=== PATIENT | female | born 2000 | race Caucasian/White ===

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

== ENCOUNTER 2023-03-10 10:32 | Emergency (ER) | payer OTHER, SELFPAY ==
[2023-03-10 10:33] VITALS: BP 120/72; PULSE 76; RESP 16; TEMP 36.8; O2SAT 100
--- NOTE | 2023-03-10 10:47 | ED.VIS.FEGU ---
HPI HPI - Female History of Present Illness Chief Complaint: Vag Bleeding Detail of Chief Complaint: Vaginal bleeding Informant: patient Narrative Narrative: Patient presents with vaginal bleeding that started 8 days ago. Patient thought she was having a normal period but started having more heavy bleeding since yesterday and passing clots. Patient states that she is changing a super tampon every 45 minutes. This morning she woke up her mom around 4 AM and she seemed pale. She denies any abdominal pain. Patient normally has relatively regular periods that can last over a week. She does not think she is . Patient denies abdominal pain or feeling lightheaded or dizzy. PFSH PFSH Medical History no medical history Home Medications albuterol sulfate 90 mcg/actuation aerosol inhaler (Ventolin HFA) 2 puff inhalation Q6H PRN PRN Sob &/Or Wheezing 11/25/14 [History Last Taken Unknown] loratadine 10 mg tablet (Allergy Relief (loratadine)) 10 mg PO DAILY 11/25/14 [History Last Taken Unknown] pediatric multivitamin no.17 (Animal Shapes chewable tablet) 1 ea PO DAILY 11/25/14 [History Last Taken Unknown] norethindrone acetate 5 mg tablet 5 mg PO .qid 7 days #20 tabs 03/10/23 [Rx Last Taken Unknown] Allergy/AdvReac Type Severity Reaction Status Date / Time Penicillins Allergy Swelling Verified 03/10/23 10:35 nut - unspecified [nuts] AdvReac Vomiting Verified 03/10/23 10:35 Family History no significant family his Surgical History no surgical history Social History Smoking Status: Never smoker ROS ROS ED Review of Systems ROS Unobtainable: other Constitutional Constitutional ED: Reports lethargy; Denies chills, fever(s), sweats or weight loss Eyes Eyes: Denies blurry vision, change in vision or diplopia ENT ENT ED: Denies rhinorrhea or sore throat Cardiovascular Cardiovascular: Denies chest pain, orthopnea or racing heartbeat Respiratory/Chest Respiratory/Chest: Denies cough, dyspnea, dyspnea on exertion, orthopnea or sputum Gastrointestinal Gastrointestinal: Denies abdominal pain, diarrhea, nausea or vomiting Genitourinary Genitourinary ED: Reports other Details: Vaginal bleeding ; Denies dysuria, hematuria or urinary frequency Musculoskeletal Musculoskeletal: Denies arthralgias, back pain, myalgias or neck pain Integumentary Denies abscess, Abrasions or rash Neurologic Neurologic: Denies headache(s) or weakness Psychiatric Psychiatric: Denies anxiety, depression or suicidal thoughts Endocrine Endocrinology: Denies polydipsia, polyphagia or polyuria Hematologic/Lymphatic Hematologic/Lymphatic: Denies easy bleeding, easy bruising or lymphadenopathy Allergic/Immunologic Allergic/Immunologic ED: Denies mouth swelling, tongue swelling or urticaria EXAM Physical Exam Const Vital Signs: 03/10/23 10:33 03/10/23 11:36 03/10/23 12:00 Temperature 98.2 F Temperature Source Temporal Pulse Rate 76 87 Pulse Rate [Lying] 60 Pulse Rate [Sitting (for 1 minute prior to obtaining)] 73 Pulse Rate [Standing (for 1 minute prior to obtaining)] 95 Respiratory Rate 16 16 Blood Pressure 120/72 100/65 Blood Pressure [Lying] 96/63 Blood Pressure [Sitting (for 1 minute prior to obtaining)] 107/77 Blood Pressure [Standing (for 1 minute prior to obtaining)] 100/71 Blood Pressure Mean 88 76 Blood Pressure Mean [Lying] 74 Blood Pressure Mean [Sitting (for 1 minute prior to obtaining)] 87 Blood Pressure Mean [Standing (for 1 minute prior to obtaining)] 80 Pulse Ox 100 97 Oxygen Delivery Method Room Air Positive well nourished and well developed General Appearance ED: well developed and NAD HEENT Reports TM's clear and moist mucous membranes normocephalic and atraumatic; Negative for trauma or tenderness Tympanic Membrane ED: Yes TM's clear Eyes PERRL and EOMs intact bilaterally General Eye ED: Negative for pale conjunctiva or scleral icterus Neck no lymphadenopathy, supple and no JVD General: Negative for tenderness Chest Wall inspection of chest normal and palpation of chest normal Chest: Negative for tenderness Resp normal respiratory effort and clear to auscultation bilaterally Effort and Inspection: Negative for respiratory distress or pain with movement Auscultation: Negative for rhonchi, wheezes or diminished lung sounds Cardio regular rate, regular rhythm, S1 normal heart sound, S2 normal heart sound and no murmurs Peripheral Pulses: pulses 2+ throughout GI normal to inspection, nondistended, normoactive bowel sounds, soft to palpation, non-tender, non-distended and no masses Back/Spine no CVA tenderness and no thoracic nor lumbar tenderness Extremity normal to inspection General Extremety ED: Negative for edema General Extremity: Negative for edema Neuro oriented x3, CN's II-XII intact bilaterally, no sensory deficits noted and gait normal Sensorium / Orientation: awake, alert, oriented to person, oriented to place and oriented to time Motor Exam: strength 5/5 throughout and strength abnormal Psych mental status grossly normal Skin no rashes or lesions noted and no wounds MDM MDM MDM Narrative Medical decision making narrative: Patient presents with heavy period lasting more than 8 days and now going through a tampon every 45 minutes. IV line established. CBC with differential obtained showed a white count of 4.8 with hemoglobin 11.1 and platelet count 236. hCG was negative. Orthostatic vital signs were negative. Discussed case with NEEDLE SETTER on-call who recommended Aygestin and follow-up with Dr. Adrian Cole's office. Patient advised to return to persistent heavy bleeding, lightheadedness, or condition should worsen anyway. Lab Data Attestation: I reviewed the patient's lab results. Labs: Laboratory Results - last 24 hr 03/10/23 10:55 WBC 4.8 RBC 3.87 L Hgb 11.1 L Hct 33.4 L MCV 86.3 MCH 28.7 MCHC 33.2 RDW Std Deviation 43.8 RDW Coeff of Kelin 14.0 Plt Count 236 MPV 8.7 Immature Gran % (Auto) 0.200 Neut % (Auto) 43.8 L Lymph % (Auto) 39.1 [place] % (Auto) 7.3 Eos % (Auto) 9.0 H Baso % (Auto) 0.6 Absolute Neuts (auto) 2.1 Absolute Lymphs (auto) 1.87 Nucleated RBC % 0 Serum , Qual NEGATIVE Blood Type O POSITIVE Antibody Screen NEGATIVE Discharge Plan Triage Chief Complaint: Vag Bleeding ED Provider: Jessy Pablo Dx/Rx/DC Orders Clinical Impression: DUB (dysfunctional uterine bleeding) Instructions: ED Dysfunctional Uterine Bleeding Prescriptions: New norethindrone acetate 5 mg tablet 5 mg PO .qid 7 Days Qty: 20 0RF Rx Instructions: Take 4 tablets today and tomorrow. 3 tablets for 2 days after. 2 tablets for 2 days after and 1 tablet for 2 days after No Action albuterol sulfate [Ventolin HFA] 1 INHALER inhaler 2 puff inhalation Q6H PRN PRN (Reason: Sob &/Or Wheezing) loratadine [Allergy Relief (loratadine)] 10 MG tablet 10 mg PO DAILY pediatric multivitamin no.17 [Animal Shapes] 1 EACH tablet,chewable 1 ea PO DAILY Primary Care Provider: Care Physician,No Primary Referrals: Berenice Watts MD [Non-Staff] - Anabell Terry MD [Med Staff - Active Staff] - 3-5 Days Disposition Disposition: Home, Self Care Discharge Date/Time: 03/10/23 12:11
[2023-03-10] MEDS: 0.9% Normal Saline (1000mL) 1,000 ML 150 ML IV (11:11)
[2023-03-10 11:12] VITALS: BMI 21.3
[2023-03-10 11:14] LABS: Absolute Lymphocyte Count 1.87 X10^3/uL (0.83-4.51); Absolute Neutrophil Count 2.1 X10^3/uL (2.0-7.7); Basophil# 0.03 X10^3/uL; Basophil% 0.6 % (0-1); Eosinophil# 0.43 X10^3/uL; Hematocrit 33.4 % (37-47); Hemoglobin 11.1 g/dL (12.0-15.0); Lymphocyte # 1.87 X10^3/ul (0.83-4.51); Lymphocyte % 39.1 % (19-41); Mean Corp Hgb Conc 33.2 g/dL (32-36); Mean Corpuscular Hgb 28.7 pg (27.0-32.0); Mean Corpuscular Volume 86.3 fL (81-99); Mean Platelet Vol. 8.7 fl (6.2-12.0); Monocyte# 0.35 X10^3/uL; Monocyte% 7.3 % (0-10); NRBC Flagged by Analyzer 0 % (0-5); Neutrophil # 2.09 X10^3/uL (2.7-7.7); Neutrophil % 43.8 % (47-70); Platelet Count 236 K/mm3 (150-450); RBC Distribution Width SD 43.8 fl (35.1-43.9); Red Blood Count 3.87 M/mm3 (4.2-5.4); White Blood Count 4.8 K/mm3 (4.4-11.0)
[2023-03-10 11:25] LABS: Internal QC Validated? YES +Cl - CLEAR BKGD; Pregnancy, Serum, hCG Quali. NEGATIVE Negative
[2023-03-10 11:36] VITALS: BP 100/71; BP 107/77; BP 96/63; PULSE 60; PULSE 73; PULSE 95
[2023-03-10 12:00] VITALS: BP 100/65; PULSE 87; RESP 16; O2SAT 97
== END 2023-03-10 12:11 | disposition home or self-care (01) ==
PROVIDERS: Emergency Provider Emergency Medicine; Visit Provider Emergency Medicine
DX: N93.8 Other specified abnormal uterine and vaginal bleeding (principal)
CPT/HCPCS: 84703; 85025; 86850; 86900; 86901; 96360; 99284; J7030; A4216

== ENCOUNTER 2023-03-10 23:24 | Emergency (ER) | payer OTHER, SELFPAY ==
[2023-03-10 23:27] VITALS: BP 115/81; PULSE 77; RESP 16; TEMP 36.2; O2SAT 100; BMI 21.3
--- NOTE | 2023-03-11 00:20 | ED.VIS.FEGU ---
HPI HPI - Female History of Present Illness Chief Complaint: Vag Bleeding Informant: patient and family (mother) Narrative Narrative: Heavy vaginal bleeding that the patient was seen here for or earlier in the day, she states at that time she was changing tampons every 45 minutes, and now she states for the past 10 hours she has been changing tampon or going to the bathroom because of bleeding every 20 minutes. She has had episodes of lightheadedness. She was prescribed Aygestin, she took the first 4 pills at 1 time already today and it did not seem to have an effect. She was referred to a psychology assistant but does not have 1 yet. Denies any abdominal pain, nausea, vomiting, urinary symptoms. Usually regular menstrual cycles, never had this happen before usually not heavy, test earlier was negative. PFSH PFSH Medical History no medical history no medical history Home Medications albuterol sulfate 90 mcg/actuation aerosol inhaler (Ventolin HFA) 2 puff inhalation Q6H PRN PRN Sob &/Or Wheezing 11/25/14 [History Last Taken Unknown] loratadine 10 mg tablet (Allergy Relief (loratadine)) 10 mg PO DAILY 11/25/14 [History Last Taken Unknown] pediatric multivitamin no.17 (Animal Shapes chewable tablet) 1 ea PO DAILY 11/25/14 [History Last Taken Unknown] norethindrone acetate 5 mg tablet 5 mg PO .qid 7 days #20 tabs 03/10/23 [Rx Last Taken Unknown] ferrous sulfate 325 mg (65 mg iron) tablet (iron) 325 mg PO BID #60 tabs 03/11/23 [Rx Last Taken Unknown] norgestimate 0.25 mg-ethinyl estradiol 35 mcg tablet (Sprintec (28)) 1 tab PO BID #28 tabs 03/11/23 [Rx Last Taken Unknown] Allergy/AdvReac Type Severity Reaction Status Date / Time Penicillins Allergy Swelling Verified 03/10/23 10:35 nut - unspecified [nuts] AdvReac Vomiting Verified 03/10/23 10:35 Social History Smoking Status: Never smoker ROS ROS ED Constitutional Constitutional ED: Reports fatigue; Denies chills or fever(s) Eyes Eyes: Denies change in vision or diplopia ENT ENT ED: Denies rhinorrhea or sore throat Cardiovascular Cardiovascular: Reports lightheadedness; Denies chest pain, palpitations, pedal edema or syncope Respiratory/Chest Respiratory/Chest: Denies cough or dyspnea Gastrointestinal Gastrointestinal: Denies abdominal pain, diarrhea, nausea or vomiting Genitourinary Genitourinary ED: Reports vaginal bleeding; Denies dysuria or hematuria Musculoskeletal Musculoskeletal: Denies back pain or neck pain Integumentary Denies abscess or rash Neurologic Neurologic: Denies headache(s), paresthesias or weakness Psychiatric Psychiatric: Denies anxiety or suicidal thoughts EXAM Physical Exam Const Vital Signs: 03/10/23 23:27 03/11/23 00:59 Temperature 97.2 F L Temperature Source Temporal Pulse Rate 77 Respiratory Rate 16 Blood Pressure 115/81 H Blood Pressure [Lying] 105/67 Blood Pressure [Sitting (for 1 minute prior to obtaining)] 105/73 Blood Pressure [Standing (for 1 minute prior to obtaining)] 113/66 Blood Pressure Mean 92 Blood Pressure Mean [Lying] 79 Blood Pressure Mean [Sitting (for 1 minute prior to obtaining)] 83 Blood Pressure Mean [Standing (for 1 minute prior to obtaining)] 81 Pulse Ox 100 Oxygen Delivery Method Room Air Positive well nourished and well developed General Appearance ED: well developed and NAD HEENT Reports moist mucous membranes normocephalic and atraumatic Eyes PERRL and EOMs intact bilaterally Neck full ROM and supple Resp normal respiratory effort and clear to auscultation bilaterally Cardio regular rate, regular rhythm and no murmurs GI non-tender and non-distended Auscultation: normoactive bowel sounds Palpation: soft Speculum Exam - Vagina: vaginal bleeding Back/Spine no CVA tenderness General Back: other FROM Extremity normal to inspection General Extremety ED: Negative for edema, pulses abnormal or tenderness General Extremity: Negative for edema or pulses abnormal Neuro oriented x3, CN's II-XII intact bilaterally and no sensory deficits noted Sensorium / Orientation: awake and alert Motor Exam: strength 5/5 throughout Skin no rashes or lesions noted and no wounds MDM MDM MDM Narrative Medical decision making narrative: Orthostatics negative, blood counts were repeated her hemoglobin went from 11.1 down to 9.0. I did a pelvic exam, I was able to clear blood and clots out of the vault with swabs only, and there is only minimal active bleeding from the cervical eyes right now without any clots or dilatation. Her vital signs are normal she is not tachycardic. I discussed with the psychology assistant on-call Dr. Soares. We discussed and considered the possibility of admission, but we both agree that at this time she does not need to go for an emergent D&C, and so admission to the hospital will not necessarily be beneficial since she is clinically doing okay. She does not need a blood transfusion right now at 9.0. He recommends a combination control pill twice daily in addition to continuing the Aygestin as prescribed until finished, we will have to prescribe her a control pill that is available at our retail pharmacy that hopefully can fill this overnight, and she can start it with 2 right now or 1 now and 1 in a couple hours followed by 1 twice daily until she follows up with a psychology assistant. He expects this to curb/stop her bleeding, and also advises that she take an iron supplement. Discussed with patient and her mother and they are comfortable with that plan. The control pills suggested by gynecology is not available during manager shift at our retail pharmacy. In order to get her something now, I am prescribing her Sprintec, which is a higher dose, which is the only one that they have available. Patient will take 2 pills now, I am giving her Zofran to prophylax against nausea/vomiting. History & Record Review Additional record(s) reviewed:: Prior ED visit and Prior labs Lab Data Attestation: I reviewed the patient's lab results. Labs: Laboratory Results - last 24 hr 03/11/23 00:33 WBC 7.3 RBC 3.15 L Hgb 9.0 L Hct 27.0 L MCV 85.7 MCH 28.6 MCHC 33.3 RDW Std Deviation 43.5 RDW Coeff of Kelin 14.1 Plt Count 210 MPV 8.8 Immature Gran % (Auto) 0.300 Neut % (Auto) 50.1 Lymph % (Auto) 37.2 [place] % (Auto) 7.6 Eos % (Auto) 4.4 Baso % (Auto) 0.4 Absolute Neuts (auto) 3.7 Absolute Lymphs (auto) 2.71 Nucleated RBC % 0 Sodium 141 Potassium 3.6 Chloride 111 H Carbon Dioxide 27.0 Anion Gap 3 L BUN 15 Creatinine 0.80 Estim Creat Clear Calc 95.25 Est GFR (MDRD) Af Amer 116 Est GFR (MDRD) Non-Af 96 BUN/Creatinine Ratio 18.8 Glucose 115 H Calcium 8.6 Management Discussion w/another healthcare provider: [employer] (Gynecology Dr. Soares) Discharge Plan Triage Chief Complaint: Vag Bleeding ED Provider: Wayne Gonzales Dx/Rx/DC Orders Clinical Impression: DUB (dysfunctional uterine bleeding), Acute blood loss anemia Instructions: ED Dysfunctional Uterine Bleeding Prescriptions: New ferrous sulfate [iron] 325 mg (65 mg iron) tablet 325 mg PO BID Qty: 60 0RF norgestimate-ethinyl estradiol [Sprintec (28)] 0.25-35 mg-mcg tablet 1 tab PO BID Qty: 28 0RF Continued albuterol sulfate [Ventolin HFA] 1 INHALER inhaler 2 puff inhalation Q6H PRN PRN (Reason: Sob &/Or Wheezing) loratadine [Allergy Relief (loratadine)] 10 MG tablet 10 mg PO DAILY pediatric multivitamin no.17 [Animal Shapes] 1 EACH tablet,chewable 1 ea PO DAILY norethindrone acetate 5 mg tablet 5 mg PO .qid 7 Days Qty: 20 0RF Rx Instructions: Take 4 tablets today and tomorrow. 3 tablets for 2 days after. 2 tablets for 2 days after and 1 tablet for 2 days after Primary Care Provider: Nida Fox NP Referrals: Anabell Terry MD [Med Staff - Active Staff] - As soon as possible Nida Fox NP, [employer] EQUIPMENT OPERATOR[employer] [Primary Care Provider] - Disposition Disposition: Home, Self Care
[2023-03-11 00:43] LABS: Absolute Lymphocyte Count 2.71 X10^3/uL (0.83-4.51); Absolute Neutrophil Count 3.7 X10^3/uL (2.0-7.7); Basophil# 0.03 X10^3/uL; Basophil% 0.4 % (0-1); Eosinophil# 0.32 X10^3/uL; Eosinophils% 4.4 % (0-5); Lymphocyte # 2.71 X10^3/ul (0.83-4.51); Lymphocyte % 37.2 % (19-41); Mean Corp Hgb Conc 33.3 g/dL (32-36); Mean Corpuscular Hgb 28.6 pg (27.0-32.0); Mean Corpuscular Volume 85.7 fL (81-99); Mean Platelet Vol. 8.8 fl (6.2-12.0); Monocyte# 0.55 X10^3/uL; Monocyte% 7.6 % (0-10); NRBC Flagged by Analyzer 0 % (0-5); Neutrophil # 3.65 X10^3/uL (2.7-7.7); Neutrophil % 50.1 % (47-70); Platelet Count 210 K/mm3 (150-450); RBC Distribution Width CV 14.1 % (11.6-14.6); RBC Distribution Width SD 43.5 fl (35.1-43.9); Red Blood Count 3.15 M/mm3 (4.2-5.4); White Blood Count 7.3 K/mm3 (4.4-11.0)
[2023-03-11 00:59] VITALS: BP 105/67; BP 105/73; BP 113/66
[2023-03-11 01:01] LABS: Anion Gap 3 (5-15); BUN 15 mg/dL (7-18); BUN/Creat Ratio 18.8 RATIO (10-20); Calcium,Total 8.6 mg/dL (8.5-10.1); Chloride 111 mmol/L (98-107); EST Glomerular Filtration Rate 96 mL/min (>60); Est Glom Filt Rate - Afr Amer 116 mL/min (>60); Estimated Creatinine Clearance 95.25 ml/min; Glucose 115 mg/dL (74-106); Potassium 3.6 mmol/L (3.5-5.1); Sodium Level 141 mmol/L (136-145)
[2023-03-11] MEDS: Ondansetron ODT 4 MG Tablet 8 MG PO (02:51)
== END 2023-03-11 02:53 | disposition home or self-care (01) ==
PROVIDERS: Emergency Provider Emergency Medicine; PCP Nurse Practitioner Family; Referring Provider Emergency Medicine; Visit Provider Emergency Medicine
DX: N93.8 Other specified abnormal uterine and vaginal bleeding (principal); D62 Acute posthemorrhagic anemia
CPT/HCPCS: 80048; 84703; 85025; 86850; 86900; 86901; 96360; 99284; J7030; A4216

== ENCOUNTER 2023-03-11 16:17 | Inpatient (IN) | payer OTHER, SELFPAY ==
--- NOTE | 2023-03-11 10:29 | US_ITS ---
STUDY: ULTRASOUND OF THE FEMALE PELVIS - COMPLETE REASON FOR EXAM: Female, 23 years old. AUB LMP: March 02, 2023. TECHNIQUE: Transabdominal and Transvaginal TECHNICAL QUALITY: Adequate. COMPARISON: None. FINDINGS: The uterus is anteverted and is in a midline position. The uterus measures 8.8 cm x 5.1 cm x 3.5 cm. There is a Nabothian cyst of the cervix. The endometrium measures 12 mm in thickness, and is hyperechoic. Small amount of endometrial fluid is seen. There is no demonstrated endometrial mass. There is no demonstrated myometrial mass. I.U.D. - The patient does not have an I.U.D. The right ovary is visualized. The right ovary measures 4.8 cm x 3.7 cm x 2.2 cm. A dominant follicle is seen in the ovary measuring 1.5 cm x 1.4 cm x 1.4 There is no visualized right adnexal mass or complex lesion. There is normal arterial and normal venous vascularity. The left ovary is visualized. The left ovary measures 3.7 cm x 2.8 by 2.1 cm. There is no left ovarian cyst or ovarian mass. There is no visualized left adnexal mass or complex lesion. There is normal arterial and normal venous vascularity. There is no fluid in the cul-de-sac. The pre void volume of the bladder was 22 ml. US/Pelvic w/ Transvaginal IMPRESSION: Mildly thickened endometrium with a small amount of fluid within it. A dominant follicle is seen in the right ovary. Electronically Signed: Carlos A Dutton MD at 12:11 EST ,
[2023-03-11 14:04] LABS: Absolute Lymphocyte Count 2.12 X10^3/uL (0.83-4.51); Absolute Neutrophil Count 2.8 X10^3/uL (2.0-7.7); Basophil# 0.03 X10^3/uL; Basophil% 0.5 % (0-1); Eosinophil# 0.16 X10^3/uL; Eosinophils% 2.9 % (0-5); Hematocrit 26.5 % (37-47); Hemoglobin 8.4 g/dL (12.0-15.0); Lymphocyte # 2.12 X10^3/ul (0.83-4.51); Lymphocyte % 38.3 % (19-41); Mean Corp Hgb Conc 31.7 g/dL (32-36); Mean Corpuscular Hgb 27.4 pg (27.0-32.0); Mean Corpuscular Volume 86.3 fL (81-99); Mean Platelet Vol. 9.1 fl (6.2-12.0); Monocyte# 0.45 X10^3/uL; Monocyte% 8.1 % (0-10); NRBC Flagged by Analyzer 0 % (0-5); Neutrophil # 2.77 X10^3/uL (2.7-7.7); Platelet Count 251 K/mm3 (150-450); RBC Distribution Width CV 14.2 % (11.6-14.6); RBC Distribution Width SD 44.7 fl (35.1-43.9); Red Blood Count 3.07 M/mm3 (4.2-5.4); White Blood Count 5.5 K/mm3 (4.4-11.0)
[2023-03-11 14:27] LABS: T4 Free Direct 0.93 ng/dL (0.76-1.46)
[2023-03-11 15:30] VITALS: BP 101/78; PULSE 91; RESP 14; TEMP 36.9; O2SAT 98; BMI 21.0
--- NOTE | 2023-03-11 16:31 | HP.PCM_ITS ---
HPI - General General Date of Admission: 03/11/23 HPI Narrative MONET MORA, is a 23 F who presents with acute heavy vaginal bleeding. she was seen in the ER over the weekend and had heavy bleeding saturating a pad eveyr 45 minutes, Hg dropped from 11.7 to 9. she had a negative test and has never been sexually active. she previously had regular menses not significantly heavy. she has some cramping. she feels some dizziness and lightheadedness, still bleeding changing protection every hour right now. pelvic ultrasound today shows 12 mm lining with no pathology. PFSH Home Medications albuterol sulfate 90 mcg/actuation aerosol inhaler (Ventolin HFA) 2 puff inhalation Q6H PRN PRN Sob &/Or Wheezing 11/25/14 [History Last Taken Unknown] loratadine 10 mg tablet (Allergy Relief (loratadine)) 10 mg PO DAILY allergy 11/25/14 [History Last Taken 03/10/23] norethindrone acetate 5 mg tablet 5 mg PO .qid hormone 7 days #20 tabs 03/10/23 [Rx Last Taken Unknown] ferrous sulfate 325 mg (65 mg iron) tablet (iron) 325 mg PO BID iron #60 tabs 03/11/23 [Rx Last Taken Unknown] multivitamin 1 tab PO DAILY viitamin 03/11/23 [History Last Taken 03/10/23] norgestimate 0.25 mg-ethinyl estradiol 35 mcg tablet (Sprintec (28)) 1 tab PO BID hormone #28 tabs 03/11/23 [Rx Last Taken 03/11/23] Allergy/AdvReac Type Severity Reaction Status Date / Time Penicillins Allergy Swelling Verified 03/11/23 13:15 nut - unspecified [nuts] AdvReac Vomiting Verified 03/11/23 13:15 Family History (Updated 03/11/23 @ 13:21 by Marina Ibarra) Father Asthma Grandmother Diabetes Heart disease Myocardial infarction Grandfather Heart disease Grandfather Cancer liver / colon Grandmother Colon cancer Surgical History H/O wisdom tooth extraction History of dental surgery Social History (Updated 03/11/23 @ 13:22 by Marina Ibarra) adopted: No household members: family current occupational status: student current occupation: [employer] history of recent travel: No sexually active: No Smoking Status: Never smoker second hand exposure: No alcohol intake: never substance use type: does not use what type of physical activity do you participate in: other details: soccer seatbelt use: always ROS Constitutional Constitutional: Reports systems reviewed and no addt'l complaints, except as documented; Denies as per HPI, change in weight, fever(s), malaise or other Eyes Eyes: Reports systems reviewed and no addt'l complaints, except as documented; Denies as per HPI, change in vision or other ENT HEENT: Reports systems reviewed and no addt'l complaints, except as documented Respiratory/Chest Respiratory/Chest: Reports systems reviewed and no addt'l complaints, except as documented Gastrointestinal Gastrointestinal: Reports systems reviewed and no addt'l complaints, except as documented and as per HPI Genitourinary Genitourinary: Reports as per HPI Musculoskeletal Musculoskeletal: Reports systems reviewed and no addt'l complaints, except as documented Neurologic Neurologic: Reports systems reviewed and no addt'l complaints, except as d ocumented Psychiatric Psychiatric: Reports systems reviewed and no addt'l complaints, except as documented Endocrine Endocrinology: Reports systems reviewed and no addt'l complaints, except as documented Hematologic/Lymphatic Hematologic/Lymphatic: Reports systems reviewed and no addt'l complaints, except as documented Vital Signs Vital Signs Vital Signs: Weight Weight: 122 lb 9.232 oz Body Mass Index (BMI) 21.0 Physical Exam Const alert, oriented x3 and no apparent distress HEENT normocephalic Head and Scalp: atraumatic Eyes EOMs intact bilaterally and conjunctivae normal Neck full ROM, no lymphadenopathy, supple and thyroid normal General: trachea midline Lymph Lymphatic: no lymphadenopathy noted Resp normal respiratory effort, no retractions, no use of accessory muscles and clear to auscultation bilaterally Cardio Cardio Narrative: mild tachycardia regular rate GI normal to inspection, nondistended, normoactive bowel sounds, soft to palpation, non-distended and no masses Inspection: Negative for abdominal distention Back/Spine no CVA tenderness Extremity normal to inspection Skin no rashes or lesions noted Neuro moves all extremities and deep tendon reflexes 2+ bilaterally Psych mental status grossly normal Results Lab / Micro Data 03/11/23 13:55 Labs: Laboratory Results - last 24 hr 03/11/23 13:55: WBC 5.5, RBC 3.07 L, Hgb 8.4 L, Hct 26.5 L, MCV 86.3, MCH 27.4, MCHC 31.7 L, RDW Std Deviation 44.7 H, RDW Coeff of Kelin 14.2, Plt Count 251, MPV 9.1, Immature Gran % (Auto) 0.200, Neut % (Auto) 50.0, Lymph % (Auto) 38.3, [place] % (Auto) 8.1, Eos % (Auto) 2.9, Baso % (Auto) 0.5, Absolute Neuts (auto) 2.8, Absolute Lymphs (auto) 2.12, Nucleated RBC % 0, TSH 1.40, Free T4 0.93 Imagaing Radiology Impression Pelvic/Transvag US 03/11/23 10:29 IMPRESSION: Mildly thickened endometrium with a small amount of fluid within it. A dominant follicle is seen in the right ovary. Electronically Signed: Carlos A Dutton MD at 12:11 EST , Assessment & Plan Assessment/Plan (1) DUB (dysfunctional uterine bleeding): (2) Acute blood loss anemia: PLAN: Plan admit for [facility], see a/p comments for details
[2023-03-11] MEDS: 0.9% Saline Lock 10 ML Syringe IV (16:44)
[2023-03-11] MEDS: 0.9% Normal Saline (1000mL) 1,000 ML 1000 ML IV (16:44)
[2023-03-11] MEDS: Estrogens,Conj. 25 MG Vial IV (17:34)
[2023-03-11] MEDS: Sodium Ferric Gluconat 250 MG in 0.9% Normal Saline 250 ML 135 MG IV (17:40)
[2023-03-11 20:33] VITALS: BP 97/61; PULSE 83; RESP 16; TEMP 36.7; O2SAT 100
[2023-03-11] MEDS: Lactated Ringers 1,000 ML 100 ML IV (20:51)
[2023-03-11] MEDS: Megestrol 40 MG Tablet PO (20:52)
[2023-03-12] VITALS (11 sets, daily range): BP systolic 92–102; BP diastolic 52–67; PULSE 63–93; RESP 16; TEMP 36.6–37; O2SAT 98–100
[2023-03-12] MEDS: Megestrol 40 MG Tablet PO ×3 (05:58→20:23)
[2023-03-12] MEDS: Lactated Ringers 1,000 ML 100 ML IV (06:01)
[2023-03-12 06:46] LABS: Absolute Lymphocyte Count 2.51 X10^3/uL (0.83-4.51); Absolute Neutrophil Count 2.9 X10^3/uL (2.0-7.7); Basophil# 0.02 X10^3/uL; Basophil% 0.3 % (0-1); Eosinophil# 0.27 X10^3/uL; Eosinophils% 4.4 % (0-5); Hematocrit 18.8 % (37-47); Lymphocyte # 2.51 X10^3/ul (0.83-4.51); Lymphocyte % 40.8 % (19-41); Mean Corp Hgb Conc 31.9 g/dL (32-36); Mean Corpuscular Hgb 27.8 pg (27.0-32.0); Mean Platelet Vol. 9.5 fl (6.2-12.0); Monocyte# 0.44 X10^3/uL; Monocyte% 7.2 % (0-10); NRBC Flagged by Analyzer 0 % (0-5); Neutrophil # 2.89 X10^3/uL (2.7-7.7); Platelet Count 167 K/mm3 (150-450); RBC Distribution Width CV 14.4 % (11.6-14.6); RBC Distribution Width SD 45.6 fl (35.1-43.9); Red Blood Count 2.16 M/mm3 (4.2-5.4); White Blood Count 6.2 K/mm3 (4.4-11.0)
[2023-03-12 06:59] LABS: International Normalized Ratio 1.1; Prothrombin Time (Protime)PT. 14.5 SECONDS (11.7-14.9)
[2023-03-12 07:42] LABS: Differential Indicated SCAN CRITERIA MET
[2023-03-12 07:43] LABS: Differential Comment SCANNED
--- NOTE | 2023-03-12 08:35 | PN.OBGYN_ITS ---
Subjective Subjective Patient doing better bleeding decreasing, changing not fully saturated pad every few hours overnight, decreased significantly from changing it every 30-45 minutes. clear liquids and received IVFs overnight. no N V D, Ambulating without difficulty. Denies chest pain, shortness of breath, calf pain/swelling, fevers, chills, some lightheadedness with ambulation. Objective Data Objective Data Vital Signs: Vital Signs Temp Pulse Resp BP Pulse Ox O2 Del Method 98.3 F 93 16 101/67 99 Room Air 03/12/23 07:55 03/12/23 07:55 03/12/23 07:55 03/12/23 07:55 03/12/23 07:55 03/12/23 08:00 Oxygen Delivery Method Room Air Weight: 122 lb 9.232 oz Body Mass Index (BMI) 21.0 Intake & Output: Intake and Output for Last 24 Hours 03/10/23 03/11/23 03/12/23 23:59 23:59 23:59 Intake Total 1270 / 1270 916.67 / 916.67 Output Total 2 / 2 Balance 1268 / 1268 916.67 / 916.67 Lab / Micro Data 03/12/23 05:50 Labs: Laboratory Results - last 24 hr 03/11/23 13:55: WBC 5.5, RBC 3.07 L, Hgb 8.4 L, Hct 26.5 L, MCV 86.3, MCH 27.4, MCHC 31.7 L, RDW Std Deviation 44.7 H, RDW Coeff of Kelin 14.2, Plt Count 251, MPV 9.1, Immature Gran % (Auto) 0.200, Neut % (Auto) 50.0, Lymph % (Auto) 38.3, [place] % (Auto) 8.1, Eos % (Auto) 2.9, Baso % (Auto) 0.5, Absolute Neuts (auto) 2.8, Absolute Lymphs (auto) 2.12, Nucleated RBC % 0, TSH 1.40, Free T4 0.93 03/12/23 05:50: WBC 6.2, RBC 2.16 L, Hgb 6.0 L*, Hct 18.8 L, MCV 87.0, MCH 27.8, MCHC 31.9 L, RDW Std Deviation 45.6 H, RDW Coeff of [place] 14.4, Plt Count 167, MPV 9.5, Immature Gran % (Auto) 0.300, Neut % (Auto) 47.0, Lymph % (Auto) 40.8, [place] % (Auto) 7.2, Eos % (Auto) 4.4, Baso % (Auto) 0.3, Absolute Neuts (auto) 2.9, Absolute Lymphs (auto) 2.51, Nucleated RBC % 0, Differential Comment SCANNED, Diff Path Review July foll, PT 14.5, INR 1.1 Radiography Diagnostic Testing: Radiology Impression Pelvic/Transvag US 03/11/23 10:29 IMPRESSION: Mildly thickened endometrium with a small amount of fluid within it. A dominant follicle is seen in the right ovary. Electronically Signed: Carlos A Dutton MD at 12:11 EST , ROS Constitutional Constitutional: Reports systems reviewed and no addt'l complaints, except as documented Cardiovascular Cardiovascular: Reports systems reviewed and no addt'l complaints, except as documented Respiratory/Chest Respiratory/Chest: Reports systems reviewed and no addt'l complaints, except as documented Gastrointestinal Gastrointestinal: Reports systems reviewed and no addt'l complaints, except as documented Physical Exam Const alert, oriented x3 and no apparent distress HEENT Head and Scalp: atraumatic Resp normal respiratory effort GI soft to palpation and non-tender Assessment & Plan (1) DUB (dysfunctional uterine bleeding): COMMENT: admit for anemia and peristent bleeding despite outpatient therapy, give IV estrogen x 1 and then megace 40 TID and follow blood counts. Tand S O pos done 03/10 in ER. bleeding decreasing with megace and IV estrogen, vWD workup pending, normal PT INR. normal Thyroid workup. US shows 12 lining, normal ovaries. (2) Acute blood loss anemia: COMMENT: counts dropped this am significantly likely normalizing out as bleeding is decreasing, will transfuse 2 units and repeat counts. keep NPO at present in case of need for d and c PLAN: Plan see a/p comments above scds in bed pretreat for blood transfusion.
[2023-03-12] MEDS: DiphenhydrAMINE 25 MG Capsule 50 MG PO (08:38)
[2023-03-12] MEDS: Acetaminophen 500 MG Tablet 1000 MG PO (08:38)
--- NOTE | 2023-03-12 11:52 | CASEMGMT ---
WAN RAM Assessment: Face to Face with pt for initial transition planning/care coordination assessment. RN YO introduced self and role at [facility], pt voices understanding and consents to assessment. Pt is A&O x4 and answers all questions appropriately at this time. Pt sitting up in bed in no distress with mother at bedside. Pt agreeable to assessment with mother present. Care providers, pharmacy, and demographics verified/updated. 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 Pt reports she is I in ADL's and denies concerns at home. Transportation: Pt drives self and denies concerns with transportation. DME:none HHC/SNF:Denies hx of Pt states no concerns with going home at time of dc. Pt states no further concerns/needs. CM to follow. Advised pt to ask CM if any further question/concerns/needs arise, voices understanding. Pt Goal: Home Plan: Home
[2023-03-12] MEDS: 0.9% Saline Lock 10 ML Syringe IV (13:12)
--- NOTE | 2023-03-12 17:32 | PCM.PN.BLA ---
Progress Note patient evaluated- feeling better, improved color and ambulating well. bleeding decreased significantly, changing a not fully saturated pad every 3-4 hours. Hg brandon more than expected, will keep overnight and repeat Hg in am
[2023-03-12 17:47] LABS: Absolute Lymphocyte Count 2.34 X10^3/uL (0.83-4.51); Absolute Neutrophil Count 5.3 X10^3/uL (2.0-7.7); Basophil# 0.04 X10^3/uL; Basophil% 0.5 % (0-1); Eosinophil# 0.12 X10^3/uL; Eosinophils% 1.4 % (0-5); Hematocrit 29.5 % (37-47); Hemoglobin 9.9 g/dL (12.0-15.0); Lymphocyte # 2.34 X10^3/ul (0.83-4.51); Lymphocyte % 28.1 % (19-41); Mean Corp Hgb Conc 33.6 g/dL (32-36); Mean Corpuscular Hgb 29.1 pg (27.0-32.0); Mean Corpuscular Volume 86.8 fL (81-99); Monocyte# 0.53 X10^3/uL; Monocyte% 6.4 % (0-10); NRBC Flagged by Analyzer 0 % (0-5); Neutrophil # 5.26 X10^3/uL (2.7-7.7); Neutrophil % 63.2 % (47-70); Platelet Count 167 K/mm3 (150-450); RBC Distribution Width CV 14.3 % (11.6-14.6); RBC Distribution Width SD 45.2 fl (35.1-43.9); White Blood Count 8.3 K/mm3 (4.4-11.0)
--- NOTE | 2023-03-13 02:38 | DCINST_ITS ---
Discharge Instructions Diet Discharge Diet: No restrictions Activity Discharge Activity: Return to Normal Activity Return to work on:: 03/20/23 May shower in (days): 0 May resume sexual activity in: No Restrictions Weight Bearing Status: Weight bearing as tolerated Dressing / Incision Call your doctor if your incision/area has: - (saturating a pad an hour for more than 2 hours in a row) Call your doctor if you observe: Fever of 101 or Higher, Dizziness, Fainting spells, Swelling in the ankles, Chest pain and Calf discomfort Follow Up Care Test Results: Test results from this visit will be discussed in further detail at your follow- up appointment, if applicable. Discharge Plan Admission Admit Date/Time: 03/11/23 16:17 Attending Provider: Anabell Terry Primary Care Provider: Nida Fox NP Discharge Orders/Prescriptions Prescriptions: New megestrol 40 mg Tablet 40 mg PO TID Qty: 45 1RF Rx Instructions: tid x 3 days then BID x 3 days then once daily for remainder. megestrol 40 mg tablet 40 mg PO TID Qty: 45 1RF Rx Instructions: TID x 3 days then BID x 3 days then once daily for remainder Discontinued norethindrone acetate 5 mg tablet 5 mg PO .qid 7 Days Qty: 20 0RF Patient Comments: 3 tabs will start tomorrow dose Rx Instructions: Take 4 tablets today and tomorrow. 3 tablets for 2 days after. 2 tablets for 2 days after and 1 tablet for 2 days after norgestimate-ethinyl estradiol [Sprintec (28)] 0.25-35 mg-mcg tablet 1 tab PO BID Qty: 28 0RF No Action multivitamin Tablet 1 tab PO DAILY albuterol sulfate [Ventolin HFA] 1 INHALER inhaler 2 puff inhalation Q6H PRN PRN (Reason: Sob &/Or Wheezing) loratadine [Allergy Relief (loratadine)] 10 MG tablet 10 mg PO DAILY ferrous sulfate [iron] 325 mg (65 mg iron) tablet 325 mg PO BID Qty: 60 0RF Patient Comments: new order has not start taking yet Referrals / Follow Up: Nida Fox NP, [employer] OPERATOR-C [Primary Care Provider] - Disposition Disposition (needs filled in before D/C Order can be placed): Home, Self Care
[2023-03-13 03:10] VITALS: BP 93/61; PULSE 88; RESP 16; TEMP 36.6; O2SAT 98
[2023-03-13] MEDS: Megestrol 40 MG Tablet PO (06:01)
[2023-03-13 06:42] LABS: Absolute Neutrophil Count 3.2 X10^3/uL (2.0-7.7); Basophil# 0.04 X10^3/uL; Basophil% 0.6 % (0-1); Eosinophils% 4.2 % (0-5); Hematocrit 26.9 % (37-47); Mean Corp Hgb Conc 33.5 g/dL (32-36); Mean Corpuscular Hgb 28.8 pg (27.0-32.0); Mean Corpuscular Volume 86.2 fL (81-99); Mean Platelet Vol. 9.3 fl (6.2-12.0); Monocyte# 0.61 X10^3/uL; Monocyte% 8.6 % (0-10); NRBC Flagged by Analyzer 0 % (0-5); Neutrophil # 3.19 X10^3/uL (2.7-7.7); Neutrophil % 45.2 % (47-70); Platelet Count 166 K/mm3 (150-450); RBC Distribution Width CV 14.4 % (11.6-14.6); RBC Distribution Width SD 44.6 fl (35.1-43.9); Red Blood Count 3.12 M/mm3 (4.2-5.4); White Blood Count 7.1 K/mm3 (4.4-11.0)
[2023-03-13 07:55] VITALS: BP 105/69; PULSE 74; RESP 16; TEMP 36.6; O2SAT 100
--- NOTE | 2023-03-13 08:14 | PCM.PN.OB ---
Subjective Subjective pt is resting well and states that she has had zero bleeding since 11 pm. She feels comfortable going home with the megace medication Objective Data Objective Data Vital Signs: Vital Signs Temp Pulse Resp BP Pulse Ox O2 Del Method 97.9 F 74 16 105/69 100 Room Air 03/13/23 07:55 03/13/23 07:55 03/13/23 07:55 03/13/23 07:55 03/13/23 07:55 03/13/23 07:56 Oxygen Delivery Method Room Air Weight: 122 lb 9.232 oz Body Mass Index (BMI) 21.0 Intake & Output: Intake and Output for Last 24 Hours 03/11/23 03/12/23 03/13/23 23:59 23:59 23:59 Intake Total 1270 / 1270 2135.33 / 2135.33 Output Total 2 / 2 Balance 1268 / 1268 2135.33 / 2135.33 Lab / Micro Data 03/13/23 05:56 Labs: Laboratory Results - last 24 hr 03/10/23 10:55: Crossmatch See Detail 03/12/23 08:19: Blood Type O POSITIVE, Antibody Screen NEGATIVE, Crossmatch See Detail 03/12/23 17:30: WBC 8.3, RBC 3.40 L, Hgb 9.9 L, Hct 29.5 L, MCV 86.8, MCH 29.1, MCHC 33.6 D, RDW Std Deviation 45.2 H, RDW Coeff of Kelin 14.3, Plt Count 167, MPV 9.0, Immature Gran % (Auto) 0.400, Neut % (Auto) 63.2, Lymph % (Auto) 28.1, [place] % (Auto) 6.4, Eos % (Auto) 1.4, Baso % (Auto) 0.5, Absolute Neuts (auto) 5.3, Absolute Lymphs (auto) 2.34, Nucleated RBC % 0 03/13/23 05:56: WBC 7.1, RBC 3.12 L, Hgb 9.0 L, Hct 26.9 L, MCV 86.2, MCH 28.8, MCHC 33.5, RDW Std Deviation 44.6 H, RDW Coeff of Kelin 14.4, Plt Count 166, MPV 9.3, Immature Gran % (Auto) 0.400, Neut % (Auto) 45.2 L, Lymph % (Auto) 41.0, [place] % (Auto) 8.6, Eos % (Auto) 4.2, Baso % (Auto) 0.6, Absolute Neuts (auto) 3.2, Absolute Lymphs (auto) 2.90, Nucleated RBC % 0 ROS Constitutional Constitutional: Denies change in weight, chills, fatigue, fever(s), headache(s), poor appetite or weakness Eyes Eyes: Denies blurry vision, change in vision, seeing flashes or spots in vision ENT HEENT: Denies dizziness, headache(s), loss taste/smell or sore throat Cardiovascular Cardiovascular: Denies chest pain, dizziness, dyspnea, irregular heart rhythm, leg edema, palpitations, rapid heart rate or vomiting Respiratory/Chest Respiratory/Chest: Denies chest tightness, cough, dyspnea or breast pain Gastrointestinal Gastrointestinal: Denies abdominal pain, anorexia, constipation, cramping, diarrhea, hemorrhoids, vomiting or weight changes Genitourinary Genitourinary: Denies dysuria, flank pain, genital lesions, genital pain, urinary frequency or urinary urgency Musculoskeletal Musculoskeletal: Denies back pain, difficulty walking, joint pain, limited range of motion, muscle cramps or numbness Integumentary Integumentary: Denies lesions or unusual bruising Neurologic Neurologic: Denies abnormal movements, abnormal speech, dizziness, numbness, seizure-like activity or syncope Psychiatric Psychiatric: Denies anxiety, behavioral changes, change in appetite, change in libido, cognitive impairment, confusion, depression, difficulty concentrating, hallucinations or suicidal thoughts Endocrine Endocrinology: Denies excessive sweating, polydipsia or polyuria Hematologic/Lymphatic Hematologic/Lymphatic: Denies easy bleeding, easy bruising or lymphadenopathy Allergic/Immunologic Allergic/Immunologic: Denies itchy eyes, lip swelling, seasonal rhinorrhea, rhinitis, throat swelling, tongue swelling, eczemia, wheezing or asthma Physical Exam Const alert, oriented x3 and no apparent distress HEENT normocephalic Eyes EOMs intact bilaterally Neck full ROM Chest Chest: symmetrical chest wall rise Resp normal respiratory effort GI non-tender and non-distended Extremity General Extremity: normal exam except as noted Assessment & Plan (1) DUB (dysfunctional uterine bleeding): COMMENT: admit for anemia and peristent bleeding despite outpatient therapy, give IV estrogen x 1 and then megace 40 TID and follow blood counts. Tand S O pos done 03/10 in ER. bleeding decreasing with megace and IV estrogen, vWD workup pending, normal PT INR. normal Thyroid workup. US shows 12 lining, normal ovaries. (2) Acute blood loss anemia: COMMENT: counts dropped this am significantly likely normalizing out as bleeding is decreasing, will transfuse 2 units and repeat counts. keep NPO at present in case of need for d and c PLAN: Plan continue megace ok for dc to home follow up in 1 month
[2023-03-13 10:30] VITALS: BP 102/57; PULSE 77; RESP 16; TEMP 36.6; O2SAT 100
[2023-03-13 11:03] LABS: Pathologist Review Reviewed
--- NOTE | 2023-03-13 11:10 | PHA.DC_ITS ---
[facility]acy [facility] has performed discharge medication reconciliation for this patient. Medication education papers prepared, patient discharged before I was able to counselor at law. The patient's discharge medication list was reviewed for discrepancies and discrepancies were resolved.
--- NOTE | 2023-03-13 11:10 | PHA.DC.MR.R ---
Pharmacy [place] [facility] has performed discharge medication reconciliation for this patient. Medication education papers prepared, patient discharged before I was able to peer financial counselor. The patient's discharge medication list was reviewed for discrepancies and discrepancies were resolved.
== END 2023-03-13 10:47 | disposition home or self-care (01) | DRG 760 ==
PROVIDERS: Admitting Provider Obstetrics & Gynecology; PCP Nurse Practitioner Family; Referring Provider Obstetrics & Gynecology; Visit Provider Obstetrics & Gynecology
DX: N93.8 Other specified abnormal uterine and vaginal bleeding (principal); D62 Acute posthemorrhagic anemia; Z79.818 Long term (current) use of other agents affecting estrogen receptors and estrogen levels
CPT/HCPCS: 36415; 76830; 76856; 80048; 84439; 84443; 84703; 85025; 85245; 85610; 86644; 86850; 86900; 86901; 86920; 96360; 99284; J7030; J7040; J7050; J7120; P9040; A4216; J1410; J2916

== ENCOUNTER → 2023-04-16 | Outpatient (CLI) | payer OTHER, SELFPAY ==
[2023-04-16 13:45] LABS: International Normalized Ratio 0.9; Prothrombin Time (Protime)PT. 12.5 SECONDS (11.7-14.9)
[2023-04-16 13:47] LABS: Absolute Lymphocyte Count 2.49 X10^3/uL (0.83-4.51); Absolute Neutrophil Count 2.1 X10^3/uL (2.0-7.7); Basophil# 0.04 X10^3/uL; Basophil% 0.7 % (0-1); Eosinophil# 0.26 X10^3/uL; Eosinophils% 4.7 % (0-5); Hematocrit 40.5 % (37-47); Hemoglobin 13.7 g/dL (12.0-15.0); Lymphocyte # 2.49 X10^3/ul (0.83-4.51); Lymphocyte % 45.4 % (19-41); Mean Corp Hgb Conc 33.8 g/dL (32-36); Mean Corpuscular Hgb 30.2 pg (27.0-32.0); Mean Corpuscular Volume 89.4 fL (81-99); Mean Platelet Vol. 9.2 fl (6.2-12.0); Monocyte# 0.53 X10^3/uL; Monocyte% 9.7 % (0-10); NRBC Flagged by Analyzer 0 % (0-5); Neutrophil # 2.14 X10^3/uL (2.7-7.7); Neutrophil % 39.1 % (47-70); Platelet Count 230 K/mm3 (150-450); RBC Distribution Width SD 42.6 fl (35.1-43.9); Red Blood Count 4.53 M/mm3 (4.2-5.4); White Blood Count 5.5 K/mm3 (4.4-11.0)
== END | disposition home or self-care (01) ==
LOC: PAVLAB 13:24
PROVIDERS: PCP Nurse Practitioner Family; Referring Provider Obstetrics & Gynecology; Visit Provider Obstetrics & Gynecology
DX: D62 Acute posthemorrhagic anemia (principal)
CPT/HCPCS: 36415; 85025; 85610

== ENCOUNTER → 2023-12-30 | Outpatient (CLI) | payer OTHER, SELFPAY ==
[2024-01-07 20:08] LABS: HPV APTIMA, High Risk Negative (Negative)
[2024-01-08 08:02] LABS: HPV Reflexed? YES, CHARGE PATIENT
== END | disposition home or self-care (01) ==
LOC: LABSPEC 11:11
PROVIDERS: PCP Nurse Practitioner Family; Referring Provider Obstetrics & Gynecology; Visit Provider Obstetrics & Gynecology
DX: Z12.4 Encounter for screening for malignant neoplasm of cervix (principal)
CPT/HCPCS: 87624; 88175; G0145

== ENCOUNTER → 2024-02-03 | Outpatient (CLI) | payer OTHER, SELFPAY ==
[2024-02-03 16:43] LABS: Absolute Neutrophil Count 3.3 X10^3/uL (2.0-7.7); Basophil# 0.04 X10^3/uL; Basophil% 0.6 % (0-1); Eosinophils% 7.4 % (0-5); Hematocrit 37.1 % (37-47); Hemoglobin 12.8 g/dL (12.0-15.0); Mean Corp Hgb Conc 34.5 g/dL (32-36); Mean Corpuscular Hgb 30.7 pg (27.0-32.0); Mean Platelet Vol. 9.3 fl (6.2-12.0); Monocyte# 0.63 X10^3/uL; Monocyte% 9.3 % (0-10); NRBC Flagged by Analyzer 0 % (0-5); Neutrophil # 3.29 X10^3/uL (2.7-7.7); Neutrophil % 48.6 % (47-70); Platelet Count 219 K/mm3 (150-450); RBC Distribution Width CV 12.5 % (11.6-14.6); RBC Distribution Width SD 40.2 fl (35.1-43.9); Red Blood Count 4.17 M/mm3 (4.2-5.4); White Blood Count 6.8 K/mm3 (4.4-11.0)
[2024-02-05 04:09] LABS: PROLACTIN 11.9 ng/mL (4.8-33.4)
== END | disposition home or self-care (01) ==
PROVIDERS: PCP Nurse Practitioner Family; Referring Provider Obstetrics & Gynecology; Visit Provider Obstetrics & Gynecology
DX: N93.9 Abnormal uterine and vaginal bleeding, unspecified (principal); Z13.29 Encounter for screening for other suspected endocrine disorder
CPT/HCPCS: 36415; 76856; 82670; 83001; 84146; 84443; 85025